=== PATIENT | female | born 1960 | race Hispanic/Latino ===

== ENCOUNTER → 2018-08-13 08:55 | Outpatient (CLI) | payer OTHER, SELFPAY ==
--- NOTE | 2018-08-13 | DI.MG.S_ITS ---
BILATERAL DIGITAL SCREENING MAMMOGRAM 3D/2D WITH CAD: 08/13/2018 CLINICAL: Routine screening. Comparison is made to exams dated: 07/13/2017 mammogram, 01/07/2016 mammogram, and 01/02/2015 mammogram - [facility]. The tissue of both breasts is heterogeneously dense. This may lower the sensitivity of mammography. Current study was also evaluated with a Computer Aided Detection (CAD) system. No significant masses, calcifications, or other findings are seen in either breast. There has been no significant interval change. IMPRESSION: NEGATIVE There is no mammographic evidence of malignancy. A 1 year screening mammogram is recommended. This exam was interpreted at Station ID: [id number]. NOTE: For mammograms, a report in lay terms will be sent to the patient. Approximately 15% of breast malignancies will not be visualized mammographically. In the management of a palpable breast mass, a negative mammogram must not discourage biopsy of a clinically suspicious lesion. Electronically Signed By: Edgardo dsouza/alondra:08/15/2018 11:08:37 letter sent: Normal Exam ACR BI-RADS Category 1: Negative 3341F
[2018-08-13 10:27] LABS: Add Manual Diff / Slide Review NO; Basophils Absolute Auto 0 /uL (0-100); Basophils Percent Auto 0.9 % (0-2); Eosinophils Absolute Auto 0 /uL (0-450); Eosinophils Percent Auto 0.4 % (2-4); Hemoglobin 13.4 g/dL (12.0-16.0); Lymphocytes Absolute Auto 1400 /uL (1100-4500); Lymphocytes Percent Auto 27.7 % (25-40); Mean Corpuscular HGB Conc 32.6 % (30-36); Mean Corpuscular Volume 85.7 fL (80-100); Monocytes Absolute Auto 300 /uL (0-900); Monocytes Percent Auto 6.1 % (3-14); Neutrophils Absolute Auto 3300 /uL (1500-7000); Neutrophils Percent Auto 64.9 % (50-75); Platelet Count 400 X10^3/uL (150-400); Red Blood Cell Count 4.78 X10^6/uL (4.0-5.2)
[2018-08-13 11:04] LABS: Alanine Aminotransferase 25 IU/L (9-52); Albumin 4.5 g/dL (3.5-5.0); Albumin Globulin Ratio 1.6 (1.0-2.8); Alkaline Phosphatase 100 U/L (38-126); Aspartate Aminotransferase 18 IU/L (14-36); BUN Creatinine Ratio 23.3 (6-22); Bilirubin Total 0.4 mg/dL (0.2-1.3); Blood Urea Nitrogen 14 mg/dL (7-17); Calcium 9.6 mg/dL (8.4-10.2); Carbon Dioxide 28 mmol/L (22-32); Chloride 104 mmol/L (98-107); Cholesterol 211 mg/dL (140-199); Estimated Glomerular Filt Rate > 60.0 mL/min (>60); Globulin 2.9 g/dL (1.7-4.1); Glucose 94 mg/dL (70-100); HDL Cholesterol 63 mg/dL (40-60); HEMOLYSIS < 15 (0-50); LDL Cholesterol Calculated 135 mg/dL (<100); Potassium 4.2 mmol/L (3.4-5.1); Sodium 141 mmol/L (137-145); Total Protein 7.4 g/dL (6.3-8.2); Triglycerides 65 mg/dL (35-150)
== END ==
PROVIDERS: PCP Family Medicine; Visit Provider Family Medicine
DX: Z12.31 Encounter for screening mammogram for malignant neoplasm of breast (principal); E78.5 Hyperlipidemia, unspecified
CPT/HCPCS: 36415; 77063; 77067; 80053; 80061; 85025

== ENCOUNTER → 2019-12-01 12:39 | Outpatient (CLI) | payer OTHER, SELFPAY | PROVIDERS: PCP Family Medicine; Referring Provider Family Medicine; Visit Provider Family Medicine | DX: M81.0 Age-related osteoporosis without current pathological fracture (principal) | CPT/HCPCS: 77080 ==

== ENCOUNTER → 2019-12-22 11:25 | Outpatient (CLI) | payer OTHER, SELFPAY ==
[2019-12-23 18:43] LABS: COVID19 Sendout Not Detected (Not Detect)
== END ==
PROVIDERS: PCP Family Medicine; Visit Provider Physician Assistant
DX: Z11.59 Encounter for screening for other viral diseases (principal)
CPT/HCPCS: 87635

== ENCOUNTER 2019-12-25 11:27 | Day surgery (SDC) | payer OTHER, SELFPAY ==
--- NOTE | 2019-12-25 | PATH_ITS ---
[facility] Accession Number: [id number] . 01 Material submitted: . PART A: colon - RANDOM ASCENDING PART B: colon - RANDOM TRANSVERSE PART C: colon - RANDOM DESCENDING PART D: sigmoid colon - RANDOM SIGMOID . 01 Clinical history: . SCREENING COLONOSCOPY . 02 Diagnosis: A-D: Ascending Colon, Transverse Colon, Descending Colon, Sigmoid Colon, Random Biopsies: Colonic mucosa with minimally increased intraepithelial lymphocytes. Please see comment. Negative for active inflammation, granulomas, dysplasia and malignancy. [facility] 12/27/2019 1703 Local . 02 Comment: The colonic biopsies all show minimally increased intraepithelial lymphocytes, suggestive of but not diagnostic for lymphocytic colitis in the appropriate clinical and endoscopic setting. . . . . 02 Electronically signed: . Nadine Camacho MD, Pathologist NPI- [id number] . 01 Gross description: . Part A: RANDOM ASCENDING: Received in formalin are 2 fragment(s) of blake, soft tissue measuring 0.3 x 0.2 x 0.2 cm to 0.5 x 0.3 x 0.2 cm submitted entirely in 1 cassette(s) Part B: RANDOM TRANSVERSE: Received in formalin are 3 fragment(s) of blake, soft tissue measuring 0.2 x 0.2 x 0.2 cm to 0.3 x 0.2 x 0.2 cm submitted entirely in 1 cassette(s) Part C: RANDOM DESCENDING: Received in formalin are multiple fragment(s) of blake, soft tissue measuring 0.1 x 0.1 x 0.1 cm to 0.3 x 0.2 x 0.2 cm submitted entirely in 1 cassette(s) Part D: RANDOM SIGMOID: Received in formalin are 2 fragment(s) of blake, soft tissue measuring 0.2 x 0.2 x 0.2 cm to 0.3 x 0.2 x 0.2 cm submitted entirely in 1 cassette(s) /[place] 12/26/2019 [facility]8 Local . 02 Pathologist provided ICD-10: Z12.11, R19.7 . 02 CPT . 322535, 845088, 975709, [id number] Performed at: 01 [facility] [address] [place] [address], [place], [place] [id number] MD Nikos Mireles MD Phone: [phone] Performed at: [address] [id number] [place], [place] [id number] MD Nadine Camacho MD Phone: [phone]
--- NOTE | 2019-12-25 12:08 | PM.OP.ENDO ---
Operative Date/Time/Diagnoses Date of procedure: 12/25/19 Time of procedure: 13:14 Pre-op diagnosis: 1. Diarrhea 2. Change in stool caliber 3. Hemorrhoids 4. Screening for colon cancer Post-op diagnosis: other (Normal colonoscopy) Procedure & Clinicians Study performed: Colonoscopy Same procedure as scheduled: Yes Indications: 1. Diarrhea 2. Change in stool caliber 3. Hemorrhoids 4. Screening for colon cancer Surgeon: Elle Bruner Procedure Notes SCOAP/Timeout: 13:13 Procedure in detail: ENDOSCOPIST: Elle Bruner MD Sedation RN: Kyleigh Devi RN Sedation start time: 13:14 Sedation end time: 13:37 PROCEDURE: Colonoscopy with biopsies INDICATIONS: 1. Diarrhea 2. Change in stool caliber 3. Hemorrhoids 4. Screening for colon cancer MEDICATION: Levsin 0.125 mg sublingual, incremental doses of Versed and fentanyl until appropriate level sedation achieved. ASA CLASS: 2 CECAL WITHDRAWAL TIME: 13 minutes COMPLICATIONS: None. EXTENT OF PROCEDURE: Cecum. QUALITY OF PREP: Good with portions of liquid stool. PROCEDURE: Prior to insertion of the colonoscope, a digital rectal examination was accomplished with circumferential palpation of the distal rectal mucosa without significant findings being noted. The high-definition pediatric colonoscope was passed into the rectum in the usual fashion and advanced over to the cecum without difficulty. The ileocecal valve, appendiceal stoma, and medial wall all could be inspected and no abnormalities were seen. ASCENDING COLON: As the colonoscope was withdrawn, care was taken to expose and inspect the haustral folds and no abnormalities were seen. Random biopsies were taken throughout withdrawal. HEPATIC FLEXURE: Minor diverticulosis, otherwise, normal, no polyps or other abnormalities. TRANSVERSE COLON: Minor diverticulosis, otherwise, normal, no polyps or other abnormalities. DESCENDING COLON: Minor diverticulosis, otherwise, normal, no polyps or other abnormalities. SIGMOID COLON: Minor diverticulosis, otherwise, normal, no polyps or other abnormalities. RECTUM: Normal. J maneuver was produced. There was no significant perianal disease. The J maneuver was broken. The remainder of the rectum was inspected and there was minor, nonthrombosed, external hemorrhoid disease. The scope was withdrawn. IMPRESSION: 1. Normal colonoscopy 2. Pancolonic diverticulosis, mild 3. External hemorrhoids, nonthrombosed, miles PLAN: 1. Follow-up in clinic status post pathology results. The possibility of a missed lesion including a malignancy has been discussed with the patient previously. Potential alarm symptoms have been discussed and should be reported immediately. Complications: none Post-procedure Recommendations: Colonscopy in 10 years and Will call with biopsy results Follow up: weeks (2) Disposition: PACU
[2019-12-25] MEDS: LACTATED RINGERS 1,000 ML 200 ML IV (12:30)
[2019-12-25 12:32] VITALS: BP 159/88; PULSE 112; RESP 12; TEMP 36.9; O2SAT 99; BMI 30.1
[2019-12-25] MEDS: HYOSCYAMINE 0.125 MG TABLET PO (12:48)
[2019-12-25] MEDS: fentaNYL 250 MCG/5 ML INJ IV (13:40)
[2019-12-25] MEDS: MIDAZOLAM 5 MG/5 ML VIAL IV (13:40)
[2019-12-25 13:43] VITALS: BP 124/66; PULSE 68; RESP 17; TEMP 36.1; O2SAT 95
[2019-12-25 13:48] VITALS: BP 136/70; PULSE 90; RESP 16; TEMP 36.3; O2SAT 95
[2019-12-25 13:53] VITALS: BP 130/69; PULSE 73; RESP 19; TEMP 36.3; O2SAT 94
[2019-12-25 13:58] VITALS: BP 125/72; PULSE 71; RESP 18; TEMP 36.3; O2SAT 94
== END 2019-12-25 14:15 | disposition home or self-care (01) ==
PROVIDERS: PCP Family Medicine; Referring Provider Student in an Organized Health Care Education/Training Program; Visit Provider Student in an Organized Health Care Education/Training Program
PROC: 0DJD8ZZ Inspection of Lower Intestinal Tract, Via Natural or Artificial Opening Endoscopic (ICD-10-PCS; CPT 45378; principal; 2019-12-25 13:00)
DX: Z12.11 Encounter for screening for malignant neoplasm of colon (principal); K57.30 Diverticulosis of large intestine without perforation or abscess without bleeding; K64.4 Residual hemorrhoidal skin tags
CPT/HCPCS: 45380; J2250; J3010

== ENCOUNTER → 2020-01-24 09:45 | Outpatient (CLI) | payer OTHER, SELFPAY ==
--- NOTE | 2020-01-24 10:00 | DI.MG.S_ITS ---
Patient Name: MATEUS HERRING date: 1960 Sex: F Attending Physician: Joselin Indications: Date: 01/24/2020 09:57 At the request of: ZULMA FONSECA Procedure: MM screening mammo BI BILATERAL DIGITAL SCREENING MAMMOGRAM 3D/2D WITH CAD: 01/24/2020 CLINICAL: Routine screening. Comparison is made to exams dated: 08/13/2018 mammogram, 07/13/2017 mammogram, and 01/07/2016 mammogram - [facility]. The tissue of both breasts is heterogeneously dense. This may lower the sensitivity of mammography. Current study was also evaluated with a Computer Aided Detection (CAD) system. No significant masses, calcifications, or other findings are seen in either breast. There has been no significant interval change. IMPRESSION: NEGATIVE There is no mammographic evidence of malignancy. A 1 year screening mammogram is recommended. This exam was interpreted at Station ID: [id number]. NOTE: For mammograms, a report in lay terms will be sent to the patient. Approximately 15% of breast malignancies will not be visualized mammographically. In the management of a palpable breast mass, a negative mammogram must not discourage biopsy of a clinically suspicious lesion. Electronically Signed By: Leanne quintana/alondra:01/24/2020 10:40:23 letter sent: Normal Exam ACR BI-RADS Category 1: Negative 3341F
== END ==
PROVIDERS: PCP Family Medicine; Referring Provider Family Medicine; Visit Provider Family Medicine
DX: Z12.31 Encounter for screening mammogram for malignant neoplasm of breast (principal)
CPT/HCPCS: 77063; 77067

== ENCOUNTER → 2021-09-01 15:15 | Outpatient (CLI) | payer OTHER, SELFPAY | PROVIDERS: PCP Family Medicine; Referring Provider Family Medicine; Visit Provider Family Medicine | DX: Z13.820 Encounter for screening for osteoporosis (principal); Z78.0 Asymptomatic menopausal state; M81.0 Age-related osteoporosis without current pathological fracture | CPT/HCPCS: 77080 ==

== ENCOUNTER → 2022-07-07 16:26 | Outpatient (CLI) | payer OTHER, SELFPAY ==
[2022-07-07 17:25] LABS: Add Manual Diff / Slide Review NO; Basophils Absolute Auto 0 /uL (0-100); Basophils Percent Auto 0.4 % (0-2); Eosinophils Absolute Auto 0 /uL (0-450); Eosinophils Percent Auto 0.3 % (2-4); Hematocrit 39.5 % (36-46); Hemoglobin 13.4 g/dL (12.0-16.0); Lymphocytes Absolute Auto 3600 /uL (1100-4500); Lymphocytes Percent Auto 44.9 % (25-40); Mean Corpuscular HGB Conc 33.8 % (30-36); Mean Corpuscular Hemoglobin 28.2 PG (26-34); Mean Corpuscular Volume 83.3 fL (80-100); Monocytes Absolute Auto 300 /uL (0-900); Monocytes Percent Auto 4.1 % (3-14); Neutrophils Absolute Auto 4000 /uL (1500-7000); Neutrophils Percent Auto 50.3 % (50-75); Platelet Count 371 X10^3/uL (150-400); Red Blood Cell Count 4.74 X10^6/uL (4.0-5.2); Red Cell Distribution Width 14.3 % (11.6-14.8)
[2022-07-07 18:00] LABS: Free T3, Triiodothyronine Free 3.21 pg/mL (2.77-5.27); Free T4, Direct Thyroxine 1.06 ng/dL (0.78-2.19)
[2022-07-07 18:14] LABS: Thyroid Stimulating Hormone 0.078 uIU/mL (0.47-4.68)
[2022-07-07 20:39] LABS: Alanine Aminotransferase 23 IU/L (<35); Albumin 4.8 g/dL (3.5-5.0); Albumin Globulin Ratio 1.3 (1.0-2.8); Alkaline Phosphatase 158 U/L (38-126); Aspartate Aminotransferase 25 IU/L (14-36); BUN Creatinine Ratio 21.1 (6-22); Bilirubin Total 0.5 mg/dL (0.2-1.3); Blood Urea Nitrogen 12 mg/dL (7-17); Calcium 9.3 mg/dL (8.4-10.2); Carbon Dioxide 22 mmol/L (22-32); Chloride 106 mmol/L (98-107); Cholesterol 201 mg/dL (140-199); Estimated Glomerular Filt Rate > 60 mL/min (>60); Globulin 3.6 g/dL (1.7-4.1); Glucose 96 mg/dL (80-110); HDL Cholesterol 55 mg/dL (40-60); HEMOLYSIS < 15 (0-50); LDL Cholesterol Calculated 114 mg/dL (<100); Potassium 3.7 mmol/L (3.4-5.1); Sodium 140 mmol/L (137-145); Total Protein 8.4 g/dL (6.3-8.2); Triglycerides 161 mg/dL (35-150)
[2022-07-09 21:39] LABS: Thyroid Peroxidase Antibodies 5 IU/mL (0-34)
[2022-07-10 10:09] LABS: Parathyroid Hormone Int 46 pg/mL (15-65)
[2022-07-10 19:07] LABS: Thyroglobulin Antibodies < 1.0 IU/mL (0.0-0.9)
== END ==
PROVIDERS: PCP Family Medicine; Referring Provider Family Medicine; Visit Provider Family Medicine
DX: E07.9 Disorder of thyroid, unspecified (principal); E87.6 Hypokalemia; E78.5 Hyperlipidemia, unspecified; M81.0 Age-related osteoporosis without current pathological fracture
CPT/HCPCS: 36415; 80053; 80061; 83970; 84432; 84439; 84443; 84481; 85025; 86376; 86800

== ENCOUNTER → 2022-08-05 10:05 | Outpatient (CLI) | payer OTHER, SELFPAY ==
--- NOTE | 2022-08-05 | DI.NM.S_ITS ---
PROCEDURE: NM UPTAKE AND SCAN RADIOPHARMACEUTICAL: 355 ?Ci I-123 sodium iodide by mouth. INDICATIONS: Disorder of thyroid TECHNIQUE: I-123 sodium iodide was administered orally. Anterior neck images were obtained, and iodine uptake by the thyroid gland calculated using tow operator's software. COMPARISON: None. FINDINGS: Morphology: The thyroid gland is bilobed. The right thyroid lobe is larger than the left thyroid lobe. Question a 'hot' thyroid nodule in the superior pole of the right thyroid lobe. Uptake: The 6 hour thyroid uptake is 19.8 %; normal ranges are from 6-18%. The 24 hour thyroid uptake is 33.3%; normal ranges are from 10-30%. IMPRESSION: 1. The right thyroid lobe is larger than the left thyroid lobe. Question a hot nodule in the superior pole of the right thyroid lobe. Consider thyroid ultrasound for further evaluation. 2. Mildly elevated 6-hour and 24-hour radioactive iodine uptake. Please correlate with TSH. Dictated by: Rehana Varela M.D. on 08/06/2022 at 9:46 Approved by: Rehana Varela M.D. on 08/06/2022 at 9:56
== END ==
PROVIDERS: PCP Family Medicine; Referring Provider Family Medicine; Visit Provider Family Medicine
DX: E07.9 Disorder of thyroid, unspecified (principal)
CPT/HCPCS: 78014; A9516

== ENCOUNTER → 2022-09-14 12:01 | Outpatient (CLI) | payer OTHER, SELFPAY ==
--- NOTE | 2022-09-14 | DI.RAD.S_ITS ---
Bone Density Report Name: MATEUS HERRING Age: 61 Sex: Female Ethnicity: Date of : 1960 Indication: postmenopausal osteoporosis; Referring Provider: ZULMA FONSECA Study: Bone densitometry was performed. Exam Date: September 14, 2022 Accession number: [id number] Bone Density: Region BMD T-score Z-score Classification AP Spine(L1-L4) 0.663 -3.5 -1.8 Osteoporosis Femoral Neck (Left) 0.586 -2.4 -1.1 Osteopenia Total Hip (Left) 0.761 -1.5 -0.4 Osteopenia Femoral Neck (Right) 0.585 -2.4 -1.1 Osteopenia Total Hip (Right) 0.778 -1.3 -0.3 Osteopenia Total Hip Mean 0.769 -1.4 -0.4 Osteopenia World Health Organization criteria for BMD impression classify patients as: Normal (T-score at or above -1.0), Osteopenia (T-score between -1.0 and -2.5), or Osteoporosis (T-score at or below -2.5). 10-year Fracture Risk: FRAX not reported because: Some T-score for Spine Total or Hip Total or Femoral Neck at or below -2.5 Previous Exams: -- Region Exam Age BMD T-score BMD Change BMD Change Date g/cm2 vs Baseline vs Previous -- AP Spine (L1-L4) 09/14/2022 61 0.663 -3.5 -0.015 (-2.2%) -0.015 (-2.2%) 09/01/2021 60 0.678 -3.4 Total Hip(Left) 09/14/2022 61 0.761 -1.5 0.042 (5.9%)* 0.042 (5.9%)* 09/01/2021 60 0.719 -1.8 Total Hip(Right) 09/14/2022 61 0.778 -1.3 0.018 (2.4%) 0.018 (2.4%) 09/01/2021 60 0.760 -1.5 -- *Denotes significance at 95% confidence level, LSC for AP Spine = 0.022 g/cm2, LSC for Total Hip = 0.027 g/cm2 Impression: The patient has osteoporosis, based on the Total Spine T-score. No significant bone loss was observed. Discussion: INCREASED RISK OF FRACTURE. BONE DENSITY IS UNDESIRABLY LOW AT ONE OR MORE SKELETAL SITES, CONSISTENT WITH POSTMENOPAUSAL OSTEOPOROSIS. This patient's lowest T-score meets the World Health Organization's (WHO) criteria for osteoporosis at one or more sites (T-score -2.5 or below). In untreated patients, the risk of osteoporotic fracture increases approximately two-fold for each 1.0 SD decrease in T-score. Low bone density is not the only risk factor for fracture; also consider factors such as patient's age, frailty or poor health, risk of falling, risk of injury, previous osteoporotic fracture, family history of osteoporosis, cigarette smoking, low body weight, etc. Not everyone with low bone mineral density has osteoporosis; osteomalacia and other metabolic bone disorders should also be considered. Patients who have osteoporosis should be evaluated for specific diseases and conditions (secondary causes) that may cause or contribute to bone loss. The [place] [employer] Endocrinologists (AACE) and National Osteoporosis Foundation (NOF) recommend pharmacologic intervention for all postmenopausal women whose T-score is in this range. The patient should follow a healthful lifestyle (good nutrition with adequate calcium and vitamin D, and appropriate weight-bearing exercise). Follow-Up: Consider a repeat BMD and Vertebral Fracture Assessment (VFA) exam in 2 years or sooner if medically necessary, to reassess this patient's status. Reported by: SUZANNE LIZ MD on 09/14/2022 12:15:00 PM.
--- NOTE | 2022-09-14 | DI.US.S_ITS ---
PROCEDURE: US THYROID INDICATIONS: Thyrotoxicosis TECHNIQUE: Real-time scanning was performed of the thyroid gland, with image documentation. COMPARISON: None. FINDINGS: Right: Thyroid lobe measures 3.8 x 1.3 x 1.5 cm, and is homogeneous in echotexture. Left: Thyroid lobe measures 3.2 x 1.2 x 0.9 cm, and is homogenous in echotexture. Isthmus: 1.6 mm thick. Nodule number: 1 Location: Midpole right thyroid lobe Size: 0.5 x 0.4 x 0.4 cm. Composition: Solid Echogenicity: Isoechoic Shape: Wider than tall Margins: Smooth Echogenic foci: Non Total points: 3 ACR TI-RADS category: Mildly suspicious. IMPRESSION: Single mildly suspicious right thyroid lobe nodule as above. No specific follow-up is indicated at this time. ACR TI-RADS definitions and recommendations: TI-RADS 1 (benign): 0 points. FNA not needed. TI-RADS 2 (not suspicious): 2 points. FNA not needed. TI-RADS 3 (mildly suspicious): 3 points. * FNA if 2.5 cm or larger, follow up if 1.5 cm or larger (at 1, 3, and 5 years). TI-RADS 4 (moderately suspicious): 4-6 points. * FNA if 1.5 cm or larger, follow up if 1 cm or larger (at 1, 2, 3, and 5 years). TI-RADS 5 (highly suspicious): 7 points or more. * FNA if 1 cm or larger, follow up if 0.5 cm or larger (every year for 5 years). Dictated by: Boom Lorenzana M.D. on 09/14/2022 at 16:13 Approved by: Boom Lorenzana M.D. on 09/14/2022 at 16:14
== END ==
PROVIDERS: PCP Family Medicine; Referring Provider Family Medicine; Visit Provider Family Medicine
DX: E05.90 Thyrotoxicosis, unspecified without thyrotoxic crisis or storm (principal); E04.1 Nontoxic single thyroid nodule; M81.0 Age-related osteoporosis without current pathological fracture
CPT/HCPCS: 76536; 77080

== ENCOUNTER → 2023-06-09 12:57 | Outpatient (CLI) | payer OTHER, SELFPAY ==
--- NOTE | 2023-06-09 | DI.MG.S_ITS ---
BILATERAL DIGITAL SCREENING MAMMOGRAM 3D/2D WITH CAD: 06/09/2023 CLINICAL: Routine screening. Comparison is made to exams dated: 01/24/2020 mammogram, 08/13/2018 mammogram, and 07/13/2017 mammogram - [facility]. Both breasts are heterogeneously dense, which may obscure small masses (category c / 51-75% glandular tissue). Current study was also evaluated with a Computer Aided Detection (CAD) system. No significant masses, calcifications, or other findings are seen in either breast. There has been no significant interval change. IMPRESSION: NEGATIVE There is no mammographic evidence of malignancy. A 1 year screening mammogram is recommended. Based on the Tyrer Cuzick model (a risk assessment model) the patient's lifetime risk is 8.9% and her 10 year risk is 4.1%. According to the ACR, ACS, and NCCN guidelines, an annual breast MRI exam along with mammogram is recommended if the patient's lifetime risk is 20% or greater. This exam was interpreted at Station ID: [id number]. NOTE: For mammograms, a report in lay terms will be sent to the patient. Approximately 15% of breast malignancies will not be visualized mammographically. In the management of a palpable breast mass, a negative mammogram must not discourage biopsy of a clinically suspicious lesion. Electronically Signed By: Yehuda adame/alondra:06/10/2023 09:43:12 letter sent: Normal Exam ACR BI-RADS Category 1: Negative 3341F
--- NOTE | 2023-06-09 12:58 | DI.RAD.S_ITS ---
Bone Density Report Name: MATEUS HERRING Age: 62 Sex: Female Ethnicity: Date of : 1960 Indication: postmenopausal osteoporosis; Referring Provider: ZULMA FONSECA Study: Bone densitometry was performed. Exam Date: June 09, 2023 Accession number: [id number] Bone Density: Region BMD T-score Z-score Classification AP Spine(L1, L2, L3) 0.660 -3.3 -1.6 Osteoporosis Femoral Neck (Left) 0.571 -2.5 -1.2 Osteoporosis Total Hip (Left) 0.775 -1.4 -0.3 Osteopenia Femoral Neck (Right) 0.618 -2.1 -0.8 Osteopenia Total Hip (Right) 0.823 -1.0 0.0 Normal Total Hip Mean 0.799 -1.2 -0.2 Osteopenia World Health Organization criteria for BMD impression classify patients as: Normal (T-score at or above -1.0), Osteopenia (T-score between -1.0 and -2.5), or Osteoporosis (T-score at or below -2.5). 10-year Fracture Risk: FRAX not reported because: Some T-score for Spine Total or Hip Total or Femoral Neck at or below -2.5 Previous Exams: -- Region Exam Age BMD T-score BMD Change BMD Change Date g/cm2 vs Baseline vs Previous -- AP Spine (L1-L3) 06/09/2023 62 0.660 -3.3 -0.123 (-15.8%)# -0.017 (-2.5%) 09/14/2022 61 0.676 -3.1 -0.106 (-13.6%)# -0.007 (-1.0%) 09/01/2021 60 0.683 -3.0 -0.100 (-12.7%)# -0.029 (-4.1%)# 12/01/2019 59 0.712 -2.8 -0.071 (-9.0%)* -0.024 (-3.2%)* 05/13/2011 50 0.736 -2.6 -0.047 (-6.0%)* -0.047 (-6.0%)* 12/06/2009 49 0.783 -2.1 Total Hip(Left) 06/09/2023 62 0.775 -1.4 -0.027 (-3.4%)# 0.014 (1.8%) 09/14/2022 61 0.761 -1.5 -0.041 (-5.1%)# 0.042 (5.9%)* 09/01/2021 60 0.719 -1.8 -0.084 (-10.4%)# -0.081 (-10.1%)# 12/01/2019 59 0.799 -1.2 -0.003 (-0.4%) 0.006 (0.7%) 05/13/2011 50 0.794 -1.2 -0.009 (-1.1%) -0.009 (-1.1%) 12/06/2009 49 0.802 -1.1 Total Hip(Right) 06/09/2023 62 0.823 -1.0 -0.042 (-4.9%)# 0.045 (5.8%)# 09/14/2022 61 0.778 -1.3 -0.087 (-10.1%)# 0.018 (2.4%) 09/01/2021 60 0.760 -1.5 -0.105 (-12.2%)# -0.087 (-10.3%)# 12/01/2019 59 0.847 -0.8 -0.018 (-2.1%) -0.051 (-5.6%)* 05/13/2011 50 0.898 -0.4 0.033 (3.8%)* 0.033 (3.8%)* 12/06/2009 49 0.865 -0.6 -- *Denotes significance at 95% confidence level, LSC for AP Spine = 0.022 g/cm2, LSC for Total Hip = 0.027 g/cm2 Rate of change results reflect vertebral levels common to all scans # Denotes dissimilar scan types or analysis methods Impression: The patient has osteoporosis, based on the Total Spine T-score. No significant bone loss was observed. Discussion: INCREASED RISK OF FRACTURE. BONE DENSITY IS UNDESIRABLY LOW AT ONE OR MORE SKELETAL SITES, CONSISTENT WITH POSTMENOPAUSAL OSTEOPOROSIS. This patient's lowest T-score meets the World Health Organization's (WHO) criteria for osteoporosis at one or more sites (T-score -2.5 or below). In untreated patients, the risk of osteoporotic fracture increases approximately two-fold for each 1.0 SD decrease in T-score. Low bone density is not the only risk factor for fracture; also consider factors such as patient's age, frailty or poor health, risk of falling, risk of injury, previous osteoporotic fracture, family history of osteoporosis, cigarette smoking, low body weight, etc. Not everyone with low bone mineral density has osteoporosis; osteomalacia and other metabolic bone disorders should also be considered. Patients who have osteoporosis should be evaluated for specific diseases and conditions (secondary causes) that may cause or contribute to bone loss. The [place] [employer] of Clinical Endocrinologists (AACE) and National Osteoporosis Foundation (NOF) recommend pharmacologic intervention for all postmenopausal women whose T-score is in this range. The patient should follow a healthful lifestyle (good nutrition with adequate calcium and vitamin D, and appropriate weight-bearing exercise). Follow-Up: Consider a repeat BMD and Vertebral Fracture Assessment (VFA) exam in 2 years or sooner if medically necessary, to reassess this patient's status. Reported by: VALERIY VALADEZ M.D. on 06/09/2023 1:25:00 PM.
== END ==
PROVIDERS: PCP Family Medicine; Referring Provider Family Medicine; Visit Provider Family Medicine
DX: Z12.31 Encounter for screening mammogram for malignant neoplasm of breast (principal); R92.333 Mammographic heterogeneous density, bilateral breasts; M81.0 Age-related osteoporosis without current pathological fracture; Z78.0 Asymptomatic menopausal state
CPT/HCPCS: 77063; 77067; 77080

== ENCOUNTER → 2024-01-27 11:43 | Outpatient (CLI) | payer MEDICARE, OTHER, SELFPAY ==
--- NOTE | 2024-01-27 11:50 | DI.RAD.S_ITS ---
PROCEDURE: XR KNEE LT 3V INDICATIONS: Pain in left leg TECHNIQUE: 3 views of the knee were acquired. COMPARISON: None. FINDINGS: Bones: Diffuse osseous demineralization. No fractures or dislocations. No suspicious bony lesions. Soft tissues: No joint effusion. No suspicious soft tissue calcifications. IMPRESSION: No acute bony abnormality or significant effusion. Dictated by: Vamsi Richey M.D. on 01/27/2024 at 17:27 Approved by: Vamsi Richey M.D. on 01/27/2024 at 17:27
--- NOTE | 2024-01-27 11:50 | DI.RAD.S_ITS ---
PROCEDURE: XR HIP W PEL IF DONE LT 2V INDICATIONS: Pain in left leg TECHNIQUE: AP pelvis with lateral view(s) of the left hip(s). COMPARISON: None. FINDINGS: Bones: Diffuse osseous demineralization. No fractures or dislocations. Pelvic ring appears intact. No suspicious bony lesions. Mild bilateral hip osteoarthritis. Soft tissues: The visualized bowel gas pattern is normal. No suspicious soft tissue calcifications. IMPRESSION: Mild bilateral hip osteoarthritis. Dictated by: Vamsi Richey M.D. on 01/27/2024 at 17:28 Approved by: Vamsi Richey M.D. on 01/27/2024 at 17:28
== END ==
PROVIDERS: PCP Family Medicine; Referring Provider Family Medicine; Visit Provider Family Medicine
DX: M16.0 Bilateral primary osteoarthritis of hip (principal); M79.605 Pain in left leg
CPT/HCPCS: 73502; 73562

== ENCOUNTER → 2024-07-10 14:21 | Outpatient (CLI) | payer MEDICARE, OTHER, SELFPAY ==
--- NOTE | 2024-07-10 14:22 | DI.RAD.S_ITS ---
PROCEDURE: XR DEXA AXIAL SKELETON INDICATIONS: SCREENING FOR OSTEOPOROSIS COMPARISON: [facility], [place], XR DEXA AXIAL SKELETON, 06/09/2023, 13:11. FINDINGS: Lumbar Spine: Bone mineral density 0.678 (previously 0.660) g/cm2, T score -3.1 (previously-3.3). Left Femoral Neck: Bone mineral density 0.589 (previously 0.571) g/cm2, T score -2.3 (previously-2.5) Left Hip: Bone mineral density 0.801 (previously 0.775) g/cm2, T score -1.2 (previously-1.4). Fracture Risk Calculation (when applicable): 10-year fracture risk of a major osteoporotic fracture 6.5 percent and of a hip fracture 1.1 percent. IMPRESSION: Osteoporosis---recommend repeat DEXA in 2 years or less for reassessment of response to treatment. Follow-up guidelines as follows: Osteoporosis: Consider a repeat DEXA and Vertebral Fracture Assessment (VFA) exam in 2 years or sooner if medically necessary, to reassess this patient's status. Osteopenia: Consider a repeat DEXA in 2-3 years to reassess this patient's status, or if there is a new clinical indication. Normal: Consider a repeat DEXA in 5 years or sooner, or if there is a new clinical indication. All treatment decisions require clinical judgment and consideration of individual patient factors, including patient preferences, comorbidities, previous drug use, risk factors not captured in the FRAX model (e.g., frailty, falls, vitamin D deficiency, increased bone turnover, interval significant decline in bone density ) and possible under- or over-estimation of fracture risk by FRAX. In addition, the NOF Guide recommends that FDA-approved medical therapies be considered in postmenopausal women and men age >= 50 years with a: * Hip or vertebral (clinical or morphometric) fracture * T-score of <=-2.5 at the spine or hip * Ten-year fracture probability by FRAX of >= 3% for hip fracture or >=20% for major osteoporotic fracture. Dictated by: Vamsi Dorsey M.D. on 07/10/2024 at 20:19 Approved by: Vamsi Dorsey M.D. on 07/10/2024 at 20:21
== END ==
PROVIDERS: PCP Family Medicine; Referring Provider Family Medicine; Visit Provider Family Medicine
DX: M81.0 Age-related osteoporosis without current pathological fracture (principal); E55.9 Vitamin D deficiency, unspecified
CPT/HCPCS: 77080

== ENCOUNTER → 2024-08-14 16:26 | Outpatient (CLI) | payer MEDICARE, OTHER, SELFPAY ==
--- NOTE | 2024-08-14 16:28 | DI.MG.S_ITS ---
MM screening mammo BI: 08/14/2024. BI-RADS: 1 CLINICAL: 63-year old female for bilateral screening mammogram. Tyrer-Cuzick lifetime risk of 6.6%. No personal or first-degree family history of breast cancer. PRIOR EXAMS 06/09/2023, 01/24/2020, 08/13/2018, 07/13/2017, MAMMOGRAPHY TECHNIQUE: 2D and 3D (tomosynthesis) digital mammographic views obtained, with additional images as needed for full coverage. Current study was also evaluated with a Computer Aided Detection (CAD) system. DENSITY C. The breasts are heterogeneously dense, which may obscure small masses. MAMMOGRAPHY FINDINGS Bilateral: No suspicious mass, asymmetry, microcalcification, or other abnormality seen. IMPRESSION: * No evidence of malignancy. RECOMMENDATIONS Bilateral * Annual screening mammography. OVERALL ASSESSMENT CATEGORY BI-RADS-1: Negative. The [employer] recommends annual screening mammography beginning at age 40 for women with average risk of breast cancer. ELECTRONICALLY SIGNED: Dominic Orourke M.D. on 08/15/2024 at 07:38:40 AM PT Interpreting Station ID: [id number]
== END ==
PROVIDERS: PCP Family Medicine; Referring Provider Family Medicine; Visit Provider Family Medicine
DX: Z12.31 Encounter for screening mammogram for malignant neoplasm of breast (principal); R92.333 Mammographic heterogeneous density, bilateral breasts
CPT/HCPCS: 77063; 77067